=== PATIENT | female | born 1980 | race Caucasian/White ===

== ENCOUNTER 2024-08-31 16:00 | Emergency (ER) | payer OTHER, SELFPAY ==
[2024-08-31 16:11] VITALS: BP 115/70; PULSE 64; TEMP 36.8; O2SAT 98; BMI 33.5
--- NOTE | 2024-08-31 16:20 | XR_ITS ---
The [address] [address] Patient Name: SERGEY SÁNCHEZ MRN: [id number] date: 1980 Sex: F Assigned Patient Location: ER Current Patient Location: Accession/Order Number: [id number] Exam Date: 08/31/2024 17:20 Report Date: 08/31/2024 19:17 At the request of: SOPHIE VENEGAS Procedure: XR ankle LT min 3V Exam: Radiographs: XR foot LT min 3V, XR ankle LT min 3V Reason for exam: injury Comparison: None XR/XR ankle LT min 3V IMPRESSION: Mild left ankle soft tissue swelling. Left ankle radiographs are otherwise unremarkable. Soft tissue swelling about the left fifth MTP joint, correlate clinically. Left foot radiographs are otherwise unremarkable. Electronically authenticated by: TROY JASMINE Date: 08/31/2024 19:17
--- NOTE | 2024-08-31 16:20 | XR_ITS ---
The [address] [address] Patient Name: SERGEY SÁNCHEZ MRN: [id number] date: 1980 Sex: F Assigned Patient Location: ED.MAIN Current Patient Location: Accession/Order Number: [id number] Exam Date: 08/31/2024 17:20 Report Date: 08/31/2024 19:17 At the request of: SOPHIE VENEGAS Procedure: XR foot LT min 3V Exam: Radiographs: XR foot LT min 3V, XR ankle LT min 3V Reason for exam: injury Comparison: None XR/XR foot LT min 3V IMPRESSION: Mild left ankle soft tissue swelling. Left ankle radiographs are otherwise unremarkable. Soft tissue swelling about the left fifth MTP joint, correlate clinically. Left foot radiographs are otherwise unremarkable. Electronically authenticated by: TROY JASMINE Date: 08/31/2024 19:17
--- NOTE | 2024-08-31 18:34 | ED.LOWEXI1 ---
HPI HPI - Extremity Injury (Lower) General Chief Complaint: Extremity Injury, Lower Stated Complaint: Lower Left Foot Injury Time Seen by Provider: 08/31/24 18:16 Mode of arrival: walk-in History of Present Illness HPI Narrative: pt was carrying a dresser and the rug on the steps moved and she lost her footing. the dresser came down on her left foot and she twisted her left ankle. She now has pain throughout the left foot and left ankle. This occurred around 11am. No other injuries. Nothing taken for pain at home. Related Data Home Medications ?Medication ?Instructions ?Recorded ?Confirmed albuterol sulfate 90 mcg/actuation 2 inh inhalation Q6H PRN sob 08/31/24 08/31/24 aerosol inhaler cetirizine 10 mg tablet 10 mg PO DAILY 08/31/24 08/31/24 Allergies Allergy/AdvReac Type Severity Reaction Status Date / Time carbinoxamine (From [facility]) Allergy Severe Difficulty Verified 08/31/24 16:09 Breathing codeine Allergy Severe Anaphylaxis Verified 08/31/24 16:09 pseudoephedrine (From [facility]) Allergy Severe Difficulty Verified 08/31/24 16:09 Breathing Opioid HPI Opioid Management Most Recent Pain and Opioid Data: No Data to Display PFSH PFSH Social History Little interest or pleasure in doing things: not at all Feeling down, depressed, or hopeless: not at all Exam Narrative Exam Narrative: Nurses note and vital signs reviewed and patient is not hypoxic. afebrile General: The patient appears well and in no apparent distress. Patient is resting comfortably on cart. GCS = 15. Skin: Warm, dry, no pallor noted. Head: Normocephalic, atraumatic Eyes: PERRLA, EOMI Cardiovascular: Normal peripheral perfusion Respiratory: Patient is in no distress, no accessory muscle use Musculoskeletal: Tenderness on palpation throughout the left foot and ankle. No swelling or ecchymosis is noted. She has normal range of motion of the toes of the left foot and at the left ankle. Achilles is intact no additional sign of long bone fracture. Moves all four extremities in all modalities with 5/5 strength. 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 Psychiatric: Cooperative Constitutional Vital Signs, click to edit/add: Last Vital Signs Temp 98.2 F 01/04/25 16:11 Pulse 64 08/31/24 16:11 Resp 16 08/31/24 16:11 BP 115/70 08/31/24 16:11 Pulse Ox 98 08/31/24 16:11 O2 Del Method Room Air 08/31/24 16:11 Course Vital Signs Vital signs: Vital Signs Temperature 98.2 F 08/31/24 16:11 Pulse Rate 64 08/31/24 16:11 Respiratory Rate 16 08/31/24 16:11 Blood Pressure 115/70 08/31/24 16:11 Pulse Oximetry 98 08/31/24 16:11 Oxygen Delivery Method Room Air 08/31/24 16:11 Temperature 98.2 F 08/31/24 16:11 Pulse Rate 64 08/31/24 16:11 Respiratory Rate 16 08/31/24 16:11 Blood Pressure 115/70 08/31/24 16:11 Pulse Oximetry 98 08/31/24 16:11 Oxygen Delivery Method Room Air 08/31/24 16:11 MDM - Extremity Injury (Lower) MDM Narrative Medical decision making narrative: X-rays of the left foot and ankle were obtained and reviewed by me. I did not identify any acute fracture. The patient was informed of results and given oral Toradol. The emergency department nurse applied an Lawrence wrap to the patient's left foot and ankle. A work excuse was given to the patient. Discharge Plan Discharge Chief Complaint: Extremity Injury, Lower Clinical Impression: Ankle sprain and strain, Contusion of foot Patient Disposition: Home, Self-Care Time of Disposition Decision: 18:36 Prescriptions / Home Meds: No Action cetirizine 10 mg tablet 10 mg PO DAILY albuterol sulfate 90 mcg/actuation HFA aerosol inhaler 2 inh INHALATION Q6H PRN (Reason: sob) Print Language: Bulgarian Instructions: Ankle Sprain (ED), Foot Contusion (ED) Referrals: [facility] [Primary Care Provider] - 1 week
[2024-08-31] MEDS: KETOROLAC TROMETHAMINE 10 MG TABLET PO (18:51)
== END 2024-08-31 19:06 | disposition home or self-care (01) ==
PROVIDERS: Emergency Provider Emergency Medicine
DX: S93.402A Sprain of unspecified ligament of left ankle, initial encounter (principal); S96.912A Strain of unspecified muscle and tendon at ankle and foot level, left foot, initial encounter; S90.32XA Contusion of left foot, initial encounter; X50.1XXA Overexertion from prolonged static or awkward postures, initial encounter; W22.8XXA Striking against or struck by other objects, initial encounter
CPT/HCPCS: 73610; 73630; 99284